=== PATIENT | female | born 2005 | race Two or more races ===

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

== ENCOUNTER 2024-11-19 05:37 | Emergency (ER) | payer OTHER, SELFPAY ==
--- OUTSIDE RECORDS SUMMARY | 2023-08-12 08:00 | XMS_ITS | Continuity of Care Document ---
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 [address], [place], [place], [id number], . tel:[phone] Referring Provider: REFERRAL SELF. Family History Family Member Type Diagnosis Age At Onset No Information Payers Payer name Insurance type Covered alliance party ID Authoriza clover(s) [facility] [id number] [facility] [id number] Social History Type Description Quantity Date Captured Comments Sex Female Smoking Status No Information Chief Complaint And Reason For Visit No Information History Of Present Illness Encounter Date Complaint History Of Prese nt Illness No Information Instructions Date Instruction Additional Infor mation No Information Assessments Type Assessment Date No Information
[2024-11-19 05:44] VITALS: BP 131/74; PULSE 98; RESP 16; TEMP 36.5; O2SAT 97; BMI 40.9
--- NOTE | 2024-11-19 05:53 | ED_ITS ---
HPI - Eye Problem General Chief complaint: Eye Problems Stated complaint: right eye swollen Time Seen by Provider: 11/19/24 05:46 Source: patient Mode of arrival: ambulatory Limitations: no limitations History of Present Illness ED Provider: Dr. Gunjan Finney HPI Narrative: Patient comes to the emergency room complaining of lower eyelid 4 day. Denies fever chills, denies vision changes. Patient states that she has been having a bit of discharge from her right eye. Related Data Previous Rx's ?Medication ?Instructions ?Recorded albuterol sulfate 90 mcg/actuation 1 - 2 inh inhalatio n Q4-6H PRN 04/24/21 breath activated powder inhaler shortness of breath or wheezing 30 (ProAir RespiClick) days #1 ea octpcrdduw-bguvhvwiqltqp-vogxuiep 1 tab PO Q6H PRN jesu n #20 tabs 01/02/23 50 mg-325 mg-40 mg tablet promethazine 25 mg rectal 25 mg ME Q6H PRN nausea and 04/19/23 suppository (Promethegan) vomiting #20 ea erythromycin 5 mg/gram (0.5 %) eye 0.5 inch ophthalmic (eye) TID #3.5 11/19/24 ointment grams Allergies Allergy/AdvReac Type Severity Reaction Status Date / Time seafood Allergy Intermediate Swelling Verified 11/19/24 05:49 Review of Systems Review of Systems: Constitutional : No Weight loss, No Fever, No Chills, No Night Sweats, No Fatigue, No Malaise ENT/Mouth : No Hearing loss, No Ear Pain, No Nasal Congestion, No Sinus Pain, No Hoarseness, No sore throat, No Rhinorrhea, No Swallowing Difficulty Eyes: Complaining of right lower eyelid pain on the inside. Cardiovascular : No Chest Pain, No SOB, No Dyspnea on Exertion, No Orthopnea, No Edema, No Palpitations Respiratory : No Cough, No Sputum, No Wheezing, No Smoke Exposure, No Dyspnea Gastrointestinal : No Nausea, No Vomiting, No Diarrhea, No Constipation, No abdominal Pain, No Hematochezia, No Melena Genitourinary : no irregular bleeding, No Dysuria, No Urinary Frequency, No Hematuria, No Urinary Incontinence, No Urgency, No Flank Pain, No Urinary Flow Changes, No Hesitancy Musculoskeletal : No joint pain, No Myalgias, No Joint Swelling Skin : No Skin Lesions, No rash Neuro : No Weakness, No Numbness, No Paresthesias, No Loss of Consciousness, No Dizziness, No Headache Psych : No Anxiety/Panic, No Depression, No SI/HI/AH/VH, No Social Issues, Heme/Lymph: No Bruising, No Bleeding,No Lymphadenopathy Endocrine : No Polyuria, No Polydipsia, No Temperature Intolerance [facility] Past Medical History Medical History Breakthrough bleeding on Nexplanon Anxiety disorder, unspecified Nexplanon in place History of pre-eclampsia History of gestational hypertension Hives of unknown origin Asthma Hypertension Family History Family History Mother Kidney tumor Hx of kidney removal Brother Spina bifida Social History Social History Alcohol intake: never Smoked in Last 30 Days: No Use of substances other than those prescribed or required for medical reasons: No Do you have a plan to hurt others: No Plan Physical Exam Vital Signs: Vital Signs: Last Vital Signs Temp 97.7 F 11/19/24 05:44 Pulse 98 11/19/24 05:44 Resp 16 11/19/24 05:44 BP 131/74 11/19/24 05:44 Pulse Ox 97 11/19/24 05:44 O2 Del Method Room Air 11/19/24 05:44 BMI result Body Mass Index 40.9 Const: Other: Appearance: Alert. Oriented X3. No acute distress. Eyes: Pupils equal, round and reactive to light. On the lower right eyelid internally there is a hordeoulum ENT: Pharynx normal. Neck: Normal inspection. Neck supple. No lymph nodes noted. No crepitus CVS: Normal heart rate and rhythm. Pulses normal. Normal S1 and S2 Respiratory: No respiratory distress. Breath sounds normal. No Wheezing. No rales Abdomen: Soft and nontender. No rigidity. No distention. Skin: Skin warm and dry. Normal skin color. Normal skin turgor. Extremities: No lower extremity edema. No Lacerations. No Rash Neuro: Oriented X 3. No motor deficit. No sensory deficit. Moving all extremities. No slurred speech. CN 2 through 12 grossly intact Psych: calm, cooperative, normal affect Medical Decision Making Medical Decision Making [facility]DM Narrative: I discussed the physical exam with the patient, patient has a internal hordeolum I discussed with the patient how to use warm compresses and erythromycin ointment. Discharge Plan Discharge Clinical Impression: Internal hordeolum of right eye Patient Disposition: Home, Self-Care Instructions: Ovidio (ED) Additional Instructions: Please follow-up with your primary care physician tomorrow. If you have any worsening or new symptoms, please return to the emergency room or call 911 Prescriptions: New erythromycin 5 mg/gram (0.5 %) ointment 0.5 inch ophthalmic (eye) TID Qty: 3.5 0RF Rx Instructions: Please use 5-7 days No Action gcwoitrvug-xcarmztymyctp-cjmt 50-325-40 mg tablet 1 tab PO Q6H PRN (Reason: pain) Qty: 20 0RF promethazine [Promethegan] 25 mg suppository 25 mg ME Q6H PRN (Reason: nausea and vomiting) Qty: 20 0RF ProAir RespiClick 90 mcg/actuation aerosol powdr breath activated 1 - 2 inh inhalation Q4-6H PRN (Reason: shortness of breath or wheezing) 30 Days Qty: 1 0RF Print Language: Maltese
[2024-11-19 06:10] VITALS: BP 131/74; PULSE 98; RESP 16; TEMP 36.5; O2SAT 97
== END 2024-11-19 06:10 | disposition home or self-care (01) ==
LOC: HO.ED 06:04
PROVIDERS: Emergency Provider Emergency Medicine; PCP Internal Medicine
DX: H00.012 Hordeolum externum right lower eyelid (principal)
CPT/HCPCS: 99283; 99284